=== PATIENT | female | born 1985 | race Two or more races ===

== ENCOUNTER 2023-01-14 14:25 | Emergency (ER) | payer SELFPAY ==
[~2023-01-14] VITALS: Ht 172.7 cm; Wt 65.8 kg
[2023-01-14 14:29] VITALS: O2SAT 99
--- NOTE | 2023-01-14 14:30 | NUR ---
BIBRA FOR ANKLE PAIN. A/O X 3, TOLERATING WELL ON ROOM AIR, WILL CONTINUE TO MONITOR.
--- NOTE | 2023-01-14 15:35 | NUR ---
Patient does not wish to proceed with medical care recommended by Dr. Owusu. Patient given information related to possible complications, up to and including , which could occur as a result of leaving the hospital at this time. Patient verbalizes understanding of risks involved due to leaving against medical advice. Patient left hospital before signing AMA form.
[2023-01-14 15:36] VITALS: BP 136/65; TEMP 98.2; O2SAT 99
== END 2023-01-14 16:07 | disposition left against medical advice (07) ==
LOC: ER 14:29
DX: M79.89 Other specified soft tissue disorders (principal)
CPT/HCPCS: 73630-TC; 93971-TC